=== PATIENT | male | born 1995 | race Caucasian/White ===

== ENCOUNTER 2019-03-16 16:34 | Emergency (ER) | payer OTHER ==
[~2019-03-16] VITALS: Ht 172.7 cm; Wt 70.3 kg
[2019-03-16] MEDS ORDERED: NARCAN4 MG INH (17:47)
== END 2019-03-16 18:02 | disposition home or self-care (01) ==
LOC: ED 16:34
DX: T50.7X1A Poisoning by analeptics and opioid receptor antagonists, accidental (unintentional), initial encounter (principal); R00.0 Tachycardia, unspecified
CPT/HCPCS: 99284-25